=== PATIENT | female | born 1975 | race Caucasian/White ===

== ENCOUNTER 2018-09-07 23:28 | Emergency (ER) | payer BC ==
[~2018-09-07] VITALS: Ht 167.6 cm; Wt 83.9 kg
[2018-09-07 23:31] VITALS: BP_SYST 143
[2018-09-07] MEDS ORDERED: ASPIRIN 81 MG TAB.CHEW PO ONE (23:45)
[2018-09-08 00:23] LABS: BILIRUBIN,URINE NEGATIVE (NEGATIVE); BLOOD, URINE NEGATIVE (NEGATIVE); CLARITY/URINE CLEAR (CLEAR); COLOR,URINE YELLOW (YELLOW); GLUCOSE,URINE NEGATIVE (NEGATIVE); KETONES,URINE NEGATIVE (NEGATIVE); LEUKOCYTE ESTERASE ,URINE NEGATIVE (NEGATIVE); NITRITE, URINE NEGATIVE (NEGATIVE); PROTEIN URINE NEGATIVE (NEGATIVE); UROBILINOGEN,URINE 0.2 (0.2-1.0)
[2018-09-08 00:30] LABS: BASOPHILS % (AUTO) 0.5 % (0.0-2.0); CALCIUM 8.6 mg/dL (8.4-11.0); CREATININE 0.91 mg/dL (0.55-1.30); EOSINOPHILS # (AUTO) 0.1 K/uL (0.0-0.4); HEMATOCRIT 41.2 % (36-48); HEMOGLOBIN 13.5 g/dL (12.0-16.0); LYMPHOCYTES # (AUTO) 1.7 K/uL (1.0-5.5); MEAN CORPUSCULAR HEMOGLOBIN 30 pg (27-31); MEAN CORPUSCULAR HGB CONC 33 % (32-36); MEAN CORPUSCULAR VOLUME 92 fL (79.0-98.0); MONOCYTES # (AUTO) 0.5 K/uL (0.0-1.0); MONOCYTES % (AUTO) 5.5 % (1.7-9.3); NEUTROPHILS # (AUTO) 7.1 K/uL (1.8-7.7); PLATELET COUNT (AUTO) 245 K/uL (130-430); POTASSIUM 3.3 mmol/L (3.5-5.1); RED BLOOD CELL COUNT(AUTO) 4.46 MIL/uL (4.2-6.2); RED CELL DISTRIBUTION WIDTH 12.1 % (9.0-15.0); WHITE BLOOD COUNT (AUTO) 9.4 K/uL (4.8-10.8)
[2018-09-08 00:37] LABS: ALBUMIN 4.2 g/dL (3.4-4.8); TOTAL BILIRUBIN 0.2 mg/dL (0.0-1.0)
[2018-09-08 00:55] LABS: PROTHROMBIN TIME 9.9 SECS (9.5-12.5)
[2018-09-08] MEDS ORDERED: NITROGLYCERIN 0.4 MG TAB.SUBL SL ONE (01:00)
[2018-09-08 01:05] LABS: CKMB RELATIVE INDEX 0.4 (0.0-2.9); CREATINE KINASE MB 1.1 ng/mL (0-3.6)
[2018-09-08] MEDS ORDERED: MORPHINE 4 MG/ML INJ. SYRINGE IVP ONE (01:30)
[2018-09-08] MEDS ORDERED: IOHEXOL 100 ML IV ONE (01:52)
[2018-09-08] MEDS ORDERED: MORPHINE 2 MG/ML INJ. SYRINGE IVP ONE (05:30)
[2018-09-08 05:59] VITALS: BP_SYST 132
== END 2018-09-08 05:59 | disposition home or self-care (01) ==
LOC: SED 23:28
DX: R07.89 Other chest pain (principal); R42 Dizziness and giddiness; H53.8 Other visual disturbances; Z90.49 Acquired absence of other specified parts of digestive tract; Z98.51 Tubal ligation status; Z98.890 Other specified postprocedural states
CPT/HCPCS: 36415; 71045; 71260; 80053; 81003; 81025; 82550; 82553; 83880; 84484; 85025; 85379; 85610; 85730; 93005 ×2; 96374; 96376; 99285; J2270 ×2; Q9967

== ENCOUNTER 2020-11-09 21:49 | Inpatient (IN) | payer MEDICAID, SELFPAY ==
[~2020-11-09] VITALS: Ht 167.6 cm; Wt 90.7 kg
[2020-11-09 21:57] VITALS: BP_SYST 151
[2020-11-09 22:10] VITALS: BP_SYST 110
[2020-11-09] MEDS ORDERED: NACL 0.9% 1,000 ML IV ONE (23:30)
[2020-11-09] MEDS ORDERED: cefTRIAXone 1 GM in D5W 50 ML IV ONE (23:30)
[2020-11-10 00:10] LABS: BASOPHILS % (AUTO) 0.3 % (0.0-2.0); HEMATOCRIT 42.6 % (36-48); HEMOGLOBIN 14.5 g/dL (12.0-16.0); LYMPHOCYTES # (AUTO) 0.6 K/uL (1.0-5.5); LYMPHOCYTES % (AUTO) 5.7 % (20.5-51.5); MEAN CORPUSCULAR HEMOGLOBIN 31 pg (27-31); MEAN CORPUSCULAR HGB CONC 34 % (32-36); MEAN CORPUSCULAR VOLUME 90 fL (79.0-98.0); MONOCYTES # (AUTO) 0.8 K/uL (0.0-1.0); MONOCYTES % (AUTO) 7.4 % (1.7-9.3); NEUTROPHILS # (AUTO) 9.5 K/uL (1.8-7.7); NEUTROPHILS % (AUTO) 86.6 % (40.0-70.0); PLATELET COUNT (AUTO) 181 K/uL (130-430); RED BLOOD CELL COUNT(AUTO) 4.73 MIL/uL (4.2-6.2); RED CELL DISTRIBUTION WIDTH 12.1 % (9.0-15.0)
[2020-11-10 00:11] LABS: CALCIUM 8.4 mg/dL (8.4-11.0); CREATININE 1.04 mg/dL (0.55-1.30)
[2020-11-10 00:11] LABS: BILIRUBIN,URINE NEGATIVE (NEGATIVE); CLARITY/URINE CLOUDY (CLEAR); COLOR,URINE YELLOW (YELLOW); GLUCOSE,URINE NEGATIVE (NEGATIVE); KETONES,URINE NEGATIVE (NEGATIVE); LEUKOCYTE ESTERASE ,URINE NEGATIVE (NEGATIVE); NITRITE, URINE NEGATIVE (NEGATIVE); PROTEIN URINE 2+ (NEGATIVE)
[2020-11-10 00:15] LABS: BLOOD, URINE TRACE (NEGATIVE)
[2020-11-10 00:17] LABS: ALBUMIN 3.3 g/dL (3.4-4.8); TOTAL BILIRUBIN 0.8 mg/dL (0.0-1.0)
[2020-11-10 00:26] LABS: POTASSIUM 2.8 mmol/L (3.5-5.1)
[2020-11-10 00:39] LABS: BACTERIA,URINE FEW /HPF (None Seen); WBC,URINE 0-3 /HPF (0-3)
[2020-11-10] MEDS ORDERED: cefTRIAXone 1 GM VIAL ONE (01:07)
[2020-11-10] MEDS ORDERED: KCL 20 mEq in 100 mL (PREMIX) 100 ML IV ONE (01:15)
[2020-11-10] MEDS ORDERED: ACETAMINOPHEN 500 MG TABLET PO ONE (01:30)
[2020-11-10] MEDS ORDERED: ACETAMINOPHEN 500 MG TABLET ONE (01:42)
[2020-11-10] MEDS ORDERED: NACL 0.9% 1,000 ML IV ONE (04:00)
[2020-11-10] MEDS ORDERED: VANCOMYCIN HCL 1000 MG/VIAL IV ONE (04:00)
[2020-11-10] MEDS ORDERED: VANCOMYCIN HCL 1,000 MG in NS 250 ML IV ONE (04:00)
[2020-11-10] MEDS ORDERED: NALOXONE HCL 0.4 MG/ML AMP (NARCAN) IVP PRN ×2 (07:00)
[2020-11-10] MEDS ORDERED: ONDANSETRON HCL 4 MG/2 ML VIAL IVP PRN (07:00)
[2020-11-10] MEDS ORDERED: HYDROcodone/ACETAMIN 5-325 MG TAB (NORCO/ VICODIN) PO PRN (07:00)
[2020-11-10] MEDS ORDERED: LORazepam 2 MG/ML VIAL IVP PRN (07:00)
[2020-11-10] MEDS: IPRATROPIUM BROM 0.5 MG/2.5 ML VIAL.NEB (ATROVENT) INH SCH ×2 (07:00→11:00)
[2020-11-10] MEDS ORDERED: HYDROcodone/ACETAMIN 10-325 MG TAB PO PRN (07:00)
[2020-11-10] MEDS ORDERED: ALBUTEROL MDI INHALATION 8 GM INH INH PRN (07:30)
[2020-11-10] MEDS ORDERED: AZITHROMYCIN 500 MG in NS 250 ML IV ONE (07:30)
[2020-11-10] MEDS ORDERED: ENOXAPARIN SODIUM 40 MG/0.4 ML SYRINGE SUBCUT ONE (09:00)
[2020-11-10 10:10] LABS: BASOPHILS % (AUTO) 0.3 % (0.0-2.0); HEMATOCRIT 36.6 % (36-48); HEMOGLOBIN 12.5 g/dL (12.0-16.0); LYMPHOCYTES # (AUTO) 0.9 K/uL (1.0-5.5); LYMPHOCYTES % (AUTO) 10.1 % (20.5-51.5); MEAN CORPUSCULAR HEMOGLOBIN 31 pg (27-31); MEAN CORPUSCULAR HGB CONC 34 % (32-36); MEAN CORPUSCULAR VOLUME 90 fL (79.0-98.0); MONOCYTES # (AUTO) 0.7 K/uL (0.0-1.0); MONOCYTES % (AUTO) 7.5 % (1.7-9.3); NEUTROPHILS # (AUTO) 7.6 K/uL (1.8-7.7); NEUTROPHILS % (AUTO) 82.1 % (40.0-70.0); PLATELET COUNT (AUTO) 150 K/uL (130-430); RED BLOOD CELL COUNT(AUTO) 4.09 MIL/uL (4.2-6.2); RED CELL DISTRIBUTION WIDTH 12.5 % (9.0-15.0); WHITE BLOOD COUNT (AUTO) 9.3 K/uL (4.8-10.8)
[2020-11-10 10:39] LABS: CALCIUM 7.2 mg/dL (8.4-11.0); CREATININE 0.71 mg/dL (0.55-1.30); POTASSIUM 3.2 mmol/L (3.5-5.1)
[2020-11-10] MEDS ORDERED: ALBUTEROL MDI INHALATION 8 GM INH INH SCH (12:00)
[2020-11-10 12:25] VITALS: BP_SYST 142
[2020-11-10 12:35] LABS: ERYTHROCYTE SEDIMENTATION RATE 78 MM/HR (0-20)
[2020-11-10 13:19] LABS: C-REACTIVE PROTEIN QUANT 5.5 mg/dL (0-0.5)
[2020-11-10] MEDS: 0.45% NACL 1,000 ML IV SCH ×2 (13:28)
[2020-11-10] MEDS ORDERED: NORMAL SALINE 5 ML DISP.SYRIN IVF SCH (14:00)
[2020-11-10] MEDS: IVERMECTIN 3 MG TABLET PO SCH (14:33)
[2020-11-10] MEDS: DOXYCYCLINE HYCLATE 100 MG in D5W 100 ML IV SCH ×2 (14:35→20:57)
[2020-11-10] MEDS: NORMAL SALINE 5 ML DISP.SYRIN IVF SCH ×2 (14:40→22:10)
[2020-11-10] MEDS: ALBUTEROL MDI INHALATION 8 GM INH INH SCH ×3 (15:13→23:26)
[2020-11-10] MEDS: cefTRIAXone 1 GM IVPB PREMIX 50 ML IV SCH (20:39)
[2020-11-10 23:15] VITALS: BP_SYST 139
[2020-11-11 01:57] VITALS: BP_SYST 139
[2020-11-11] MEDS: ACETAMINOPHEN 325 MG TABLET PO PRN ×2 (03:25→23:45)
[2020-11-11] MEDS: NORMAL SALINE 5 ML DISP.SYRIN IVF SCH ×3 (05:01→22:00)
[2020-11-11] MEDS ORDERED: AZITHROMYCIN 500 MG in NS 250 ML IV SCH (07:00)
[2020-11-11 08:12] LABS: BASOPHILS % (AUTO) 0.5 % (0.0-2.0); EOSINOPHILS % (AUTO) 0.7 % (0.0-4.0); HEMATOCRIT 35.9 % (36-48); HEMOGLOBIN 12.1 g/dL (12.0-16.0); LYMPHOCYTES # (AUTO) 1.1 K/uL (1.0-5.5); LYMPHOCYTES % (AUTO) 19.8 % (20.5-51.5); MEAN CORPUSCULAR HEMOGLOBIN 32 pg (27-31); MEAN CORPUSCULAR HGB CONC 34 % (32-36); MEAN CORPUSCULAR VOLUME 93 fL (79.0-98.0); MONOCYTES # (AUTO) 0.5 K/uL (0.0-1.0); MONOCYTES % (AUTO) 9.9 % (1.7-9.3); NEUTROPHILS # (AUTO) 3.8 K/uL (1.8-7.7); NEUTROPHILS % (AUTO) 69.1 % (40.0-70.0); PLATELET COUNT (AUTO) 157 K/uL (130-430); RED BLOOD CELL COUNT(AUTO) 3.85 MIL/uL (4.2-6.2); RED CELL DISTRIBUTION WIDTH 12.2 % (9.0-15.0); WHITE BLOOD COUNT (AUTO) 5.4 K/uL (4.8-10.8)
[2020-11-11 08:20] VITALS: BP_SYST 138
[2020-11-11] MEDS: DOXYCYCLINE HYCLATE 100 MG in D5W 100 ML IV SCH ×2 (08:20→22:30)
[2020-11-11] MEDS: ENOXAPARIN SODIUM 40 MG/0.4 ML SYRINGE SUBCUT SCH (08:20)
[2020-11-11] MEDS: IVERMECTIN 3 MG TABLET PO SCH (08:20)
[2020-11-11 08:53] LABS: CALCIUM 7.6 mg/dL (8.4-11.0); CREATININE 0.5 mg/dL (0.55-1.30); POTASSIUM 3.2 mmol/L (3.5-5.1)
[2020-11-11 09:03] LABS: INR 0.9 (0.8-1.2); PROTHROMBIN TIME 9.7 SECS (9.5-12.5)
[2020-11-11 09:12] LABS: ALBUMIN 2.5 g/dL (3.4-4.8); PHOSPHORUS 2.6 mg/dL (2.7-4.5); TOTAL BILIRUBIN 0.5 mg/dL (0.0-1.0)
[2020-11-11 10:46] LABS: C-REACTIVE PROTEIN QUANT 7.6 mg/dL (0-0.5)
[2020-11-11] MEDS: 0.45% NACL 1,000 ML IV SCH ×2 (11:34→17:35)
[2020-11-11 11:54] VITALS: BP_SYST 139
[2020-11-11] MEDS: ALBUTEROL MDI INHALATION 8 GM INH INH SCH ×4 (12:15→23:25)
[2020-11-11 16:36] VITALS: BP_SYST 139
[2020-11-11] MEDS ORDERED: K PHOS 15 MM in NS 250 ML IV ONE (18:15)
[2020-11-11] MEDS: cefTRIAXone 1 GM IVPB PREMIX 50 ML IV SCH (22:00)
[2020-11-12] MEDS: 0.45% NACL 1,000 ML IV SCH ×2 (00:10→16:16)
[2020-11-12 01:34] VITALS: BP_SYST 132
[2020-11-12] MEDS: ALBUTEROL MDI INHALATION 8 GM INH INH SCH ×5 (03:35→19:00)
[2020-11-12] MEDS: NORMAL SALINE 5 ML DISP.SYRIN IVF SCH ×3 (06:40→22:00)
[2020-11-12 07:54] LABS: BASOPHILS % (AUTO) 0.7 % (0.0-2.0); EOSINOPHILS # (AUTO) 0.1 K/uL (0.0-0.4); EOSINOPHILS % (AUTO) 2.9 % (0.0-4.0); HEMATOCRIT 36.6 % (36-48); HEMOGLOBIN 12.5 g/dL (12.0-16.0); LYMPHOCYTES # (AUTO) 1.1 K/uL (1.0-5.5); LYMPHOCYTES % (AUTO) 23.2 % (20.5-51.5); MEAN CORPUSCULAR HEMOGLOBIN 32 pg (27-31); MEAN CORPUSCULAR HGB CONC 34 % (32-36); MEAN CORPUSCULAR VOLUME 94 fL (79.0-98.0); MONOCYTES # (AUTO) 0.4 K/uL (0.0-1.0); MONOCYTES % (AUTO) 8.1 % (1.7-9.3); NEUTROPHILS # (AUTO) 3.2 K/uL (1.8-7.7); NEUTROPHILS % (AUTO) 65.1 % (40.0-70.0); PLATELET COUNT (AUTO) 188 K/uL (130-430); RED BLOOD CELL COUNT(AUTO) 3.89 MIL/uL (4.2-6.2); RED CELL DISTRIBUTION WIDTH 11.9 % (9.0-15.0); WHITE BLOOD COUNT (AUTO) 4.9 K/uL (4.8-10.8)
[2020-11-12 08:00] VITALS: BP_SYST 132
[2020-11-12 08:29] LABS: CREATININE 0.5 mg/dL (0.55-1.30); POTASSIUM 3.5 mmol/L (3.5-5.1)
[2020-11-12 08:54] LABS: C-REACTIVE PROTEIN QUANT 2.3 mg/dL (0-0.5)
[2020-11-12] MEDS: ENOXAPARIN SODIUM 40 MG/0.4 ML SYRINGE SUBCUT SCH (09:32)
[2020-11-12] MEDS: DOXYCYCLINE HYCLATE 100 MG in D5W 100 ML IV SCH ×2 (09:33→21:30)
[2020-11-12] MEDS: IVERMECTIN 3 MG TABLET PO SCH (09:33)
[2020-11-12 11:37] LABS: ERYTHROCYTE SEDIMENTATION RATE 81 MM/HR (0-20)
[2020-11-12 13:03] VITALS: BP_SYST 124
[2020-11-12] MEDS: ACETAMINOPHEN 325 MG TABLET PO PRN (16:25)
[2020-11-12 17:28] VITALS: BP_SYST 150
[2020-11-12] MEDS ORDERED: BISACODYL 5 MG TABLET.DR (DULCOLAX) ONE (18:28)
[2020-11-12 20:00] VITALS: BP_SYST 135
[2020-11-12] MEDS: cefTRIAXone 1 GM IVPB PREMIX 50 ML IV SCH (20:30)
[2020-11-13] VITALS: BP_SYST 138
[2020-11-13] MEDS: ALBUTEROL MDI INHALATION 8 GM INH INH SCH ×3 (00:03→08:01)
[2020-11-13] MEDS: 0.45% NACL 1,000 ML IV SCH ×3 (00:20→20:45)
[2020-11-13] MEDS: NORMAL SALINE 5 ML DISP.SYRIN IVF SCH ×3 (06:00→21:06)
[2020-11-13] MEDS: DOXYCYCLINE HYCLATE 100 MG in D5W 100 ML IV SCH ×2 (09:13→21:40)
[2020-11-13] MEDS: ENOXAPARIN SODIUM 40 MG/0.4 ML SYRINGE SUBCUT SCH (09:13)
[2020-11-13 09:41] VITALS: BP_SYST 131
[2020-11-13 09:41] LABS: BASOPHILS % (AUTO) 0.7 % (0.0-2.0); EOSINOPHILS # (AUTO) 0.2 K/uL (0.0-0.4); EOSINOPHILS % (AUTO) 3.8 % (0.0-4.0); HEMATOCRIT 37.7 % (36-48); LYMPHOCYTES % (AUTO) 20.9 % (20.5-51.5); MEAN CORPUSCULAR HEMOGLOBIN 32 pg (27-31); MEAN CORPUSCULAR HGB CONC 34 % (32-36); MEAN CORPUSCULAR VOLUME 93 fL (79.0-98.0); MONOCYTES # (AUTO) 0.3 K/uL (0.0-1.0); NEUTROPHILS # (AUTO) 3.4 K/uL (1.8-7.7); NEUTROPHILS % (AUTO) 68.6 % (40.0-70.0); PLATELET COUNT (AUTO) 263 K/uL (130-430); RED BLOOD CELL COUNT(AUTO) 4.05 MIL/uL (4.2-6.2); RED CELL DISTRIBUTION WIDTH 12.2 % (9.0-15.0)
[2020-11-13 09:47] LABS: ALBUMIN 2.9 g/dL (3.4-4.8); CALCIUM 8.2 mg/dL (8.4-11.0); CREATININE 0.53 mg/dL (0.55-1.30); POTASSIUM 3.2 mmol/L (3.5-5.1); TOTAL BILIRUBIN 0.6 mg/dL (0.0-1.0)
[2020-11-13 10:08] LABS: C-REACTIVE PROTEIN QUANT 0.9 mg/dL (0-0.5)
[2020-11-13] MEDS ORDERED: POTASSIUM CHLORIDE 20 MEQ TAB.PRT.SR PO ONE (12:30)
[2020-11-13 12:32] LABS: ERYTHROCYTE SEDIMENTATION RATE 74 MM/HR (0-20)
[2020-11-13 13:21] VITALS: BP_SYST 132
[2020-11-13 16:04] VITALS: BP_SYST 126
[2020-11-13 20:00] VITALS: BP_SYST 122
[2020-11-13] MEDS: cefTRIAXone 1 GM IVPB PREMIX 50 ML IV SCH (21:00)
[2020-11-14] VITALS: BP_SYST 126
[2020-11-14] MEDS: 0.45% NACL 1,000 ML IV SCH ×2 (05:35→08:11)
[2020-11-14] MEDS: NORMAL SALINE 5 ML DISP.SYRIN IVF SCH ×3 (05:35→21:35)
[2020-11-14 06:17] LABS: BASOPHILS # (AUTO) 0.1 K/uL (0.0-0.2); BASOPHILS % (AUTO) 0.9 % (0.0-2.0); EOSINOPHILS # (AUTO) 0.2 K/uL (0.0-0.4); EOSINOPHILS % (AUTO) 3.2 % (0.0-4.0); HEMATOCRIT 37.1 % (36-48); HEMOGLOBIN 12.9 g/dL (12.0-16.0); LYMPHOCYTES # (AUTO) 1.5 K/uL (1.0-5.5); LYMPHOCYTES % (AUTO) 21.3 % (20.5-51.5); MEAN CORPUSCULAR HEMOGLOBIN 32 pg (27-31); MEAN CORPUSCULAR HGB CONC 35 % (32-36); MEAN CORPUSCULAR VOLUME 92 fL (79.0-98.0); MONOCYTES # (AUTO) 0.4 K/uL (0.0-1.0); MONOCYTES % (AUTO) 5.8 % (1.7-9.3); NEUTROPHILS # (AUTO) 4.7 K/uL (1.8-7.7); NEUTROPHILS % (AUTO) 68.8 % (40.0-70.0); PLATELET COUNT (AUTO) 265 K/uL (130-430); RED BLOOD CELL COUNT(AUTO) 4.04 MIL/uL (4.2-6.2); RED CELL DISTRIBUTION WIDTH 12.2 % (9.0-15.0); WHITE BLOOD COUNT (AUTO) 6.8 K/uL (4.8-10.8)
[2020-11-14 06:26] LABS: CALCIUM 8.1 mg/dL (8.4-11.0); CREATININE 0.68 mg/dL (0.55-1.30); POTASSIUM 3.7 mmol/L (3.5-5.1)
[2020-11-14 07:12] VITALS: BP_SYST 126
[2020-11-14] MEDS: ALBUTEROL MDI INHALATION 8 GM INH INH SCH ×3 (07:35→16:12)
[2020-11-14 07:55] VITALS: BP_SYST 133
[2020-11-14] MEDS: DOXYCYCLINE HYCLATE 100 MG in D5W 100 ML IV SCH ×2 (08:08→21:34)
[2020-11-14] MEDS: ENOXAPARIN SODIUM 40 MG/0.4 ML SYRINGE SUBCUT SCH (08:11)
[2020-11-14 10:17] LABS: ERYTHROCYTE SEDIMENTATION RATE 63 MM/HR (0-20)
[2020-11-14 10:57] LABS: C-REACTIVE PROTEIN QUANT 0.7 mg/dL (0-0.5)
[2020-11-14 12:11] VITALS: BP_SYST 135
[2020-11-14 16:00] VITALS: BP_SYST 137
[2020-11-14 20:00] VITALS: BP_SYST 135
[2020-11-14] MEDS: cefTRIAXone 1 GM IVPB PREMIX 50 ML IV SCH (20:30)
[2020-11-15] VITALS: BP_SYST 128
[2020-11-15] MEDS: 0.45% NACL 1,000 ML IV SCH (01:13)
[2020-11-15] MEDS: ALBUTEROL MDI INHALATION 8 GM INH INH SCH ×4 (04:23→12:25)
[2020-11-15] MEDS: NORMAL SALINE 5 ML DISP.SYRIN IVF SCH (06:30)
[2020-11-15] MEDS: DOXYCYCLINE HYCLATE 100 MG in D5W 100 ML IV SCH (08:11)
[2020-11-15] MEDS: ENOXAPARIN SODIUM 40 MG/0.4 ML SYRINGE SUBCUT SCH (08:14)
[2020-11-15 08:17] VITALS: BP_SYST 112
[2020-11-15 11:25] VITALS: BP_SYST 132
[2020-11-15] MEDS ORDERED: APIX2.5T PO (14:03)
[2020-11-15] MEDS ORDERED: LEVO500T89 PO (14:03)
[2020-11-15 14:32] VITALS: BP_SYST 132
== END 2020-11-15 15:55 | disposition home or self-care (01) | DRG 720 ==
LOC: SED 21:49 → STU 11-10 06:11 → SMU 11-15 15:42
PROVIDERS: ADMIT Preventive Medicine Preventive Medicine/Occupational Environmental Medicine; ATTEND Preventive Medicine Preventive Medicine/Occupational Environmental Medicine
DX: A41.9 Sepsis, unspecified organism (principal); U07.1 COVID-19; J12.89 Other viral pneumonia; E83.39 Other disorders of phosphorus metabolism; E87.1 Hypo-osmolality and hyponatremia; E87.6 Hypokalemia; E88.09 Other disorders of plasma-protein metabolism, not elsewhere classified; E83.51 Hypocalcemia; J96.00 Acute respiratory failure, unspecified whether with hypoxia or hypercapnia; R53.81 Other malaise; Z79.01 Long term (current) use of anticoagulants; Z90.710 Acquired absence of both cervix and uterus; Z90.49 Acquired absence of other specified parts of digestive tract; Z98.891 History of uterine scar from previous surgery
CPT/HCPCS: 36415; 36600; 71045; 80048; 80053; 81000-TC; 82550-TC; 82728; 82803-TC; 83605; 83615-TC; 83735-TC; 83880; 84100-TC; 85025; 85379; 85384-TC; 85610-TC; 85651-TC; 85730-TC; 86140; 87040-TC; 93005; 94640; 94664; 94760; 96361; 96365; 99285; G0378; J0456; J0696; J1650; J3370; J3480; J3490; J7030; J7050; J7060

== ENCOUNTER 2022-08-18 08:36 | Emergency (ER) | payer MEDICAID ==
[~2022-08-18] VITALS: Ht 167.6 cm; Wt 90.7 kg
[~2022-08-18 08:36] MED LIST: APIX2.5T PO; LEVO-62 PO
[2022-08-18 08:49] VITALS: BP_SYST 142
[2022-08-18 09:08] LABS: BASOPHILS % (AUTO) 0.5 % (0.0-2.0); EOSINOPHILS # (AUTO) 0.2 K/uL (0.0-0.4); EOSINOPHILS % (AUTO) 2.5 % (0.0-4.0); HEMATOCRIT 37.4 % (36-48); LYMPHOCYTES # (AUTO) 3.5 K/uL (1.0-5.5); MEAN CORPUSCULAR VOLUME 82 fL (79.0-98.0); MONOCYTES # (AUTO) 0.8 K/uL (0.0-1.0); MONOCYTES % (AUTO) 8.2 % (1.7-9.3); NEUTROPHILS # (AUTO) 5.2 K/uL (1.8-7.7); NEUTROPHILS % (AUTO) 52.8 % (40.0-70.0); PLATELET COUNT (AUTO) 186 K/uL (130-430); RED BLOOD CELL COUNT(AUTO) 4.59 MIL/uL (4.2-6.2); RED CELL DISTRIBUTION WIDTH 12.7 % (9.0-15.0); WHITE BLOOD COUNT (AUTO) 9.8 K/uL (4.8-10.8)
[2022-08-18 09:08] LABS: BILIRUBIN,URINE NEGATIVE (NEGATIVE); BLOOD, URINE NEGATIVE (NEGATIVE); CLARITY/URINE CLEAR (CLEAR); COLOR,URINE YELLOW (YELLOW); GLUCOSE,URINE NEGATIVE (NEGATIVE); KETONES,URINE NEGATIVE (NEGATIVE); LEUKOCYTE ESTERASE ,URINE NEGATIVE (NEGATIVE); NITRITE, URINE NEGATIVE (NEGATIVE); PH,URINE 5.5 (5.0-8.0); PROTEIN URINE NEGATIVE (NEGATIVE); UROBILINOGEN,URINE 0.2 (0.2-1.0)
[2022-08-18 09:10] LABS: ANION GAP 9 (5-15); CALCIUM 9.3 mg/dL (8.4-11.0); CHLORIDE 106 mmol/L (98-107); CREATININE 0.65 mg/dL (0.55-1.30); GLUCOSE 124 mg/dL (70-99); POTASSIUM 3.7 mmol/L (3.5-5.1); UREA NITROGEN, BLOOD 15 mg/dL (8-21)
[2022-08-18 09:15] LABS: GFR AFRICAN AMERICAN 125 mL/min (>90)
[2022-08-18 09:16] LABS: ALANINE AMINOTRANSFERASE 43 U/L (12-78); ALBUMIN 3.3 g/dL (3.4-4.8); AMYLASE 46 U/L (0-100); ASPARTATE AMINOTRANSFERASE 21 U/L (10-37); LIPASE 237 U/L (73-393); TOTAL BILIRUBIN 0.4 mg/dL (0.0-1.0)
[2022-08-18 09:24] LABS: C-REACTIVE PROTEIN QUANT < 0.2 mg/dL (0-0.5)
[2022-08-18] MEDS ORDERED: KETOROLAC TROMETHAMINE 60 MG/2 ML VIAL IM ONE (09:30)
--- NOTE | 2022-08-18 09:30 | NUR ---
Patient c/o lower abd apin x 3 days, radiating to the back. Patient states she had a hysterectomy a few years back, exact year unknown. Patient denies pain with urination. 8/10 on pain scale. Patient is AOx4, vitals are stable.
--- NOTE | 2022-08-18 09:32 | NUR ---
Patient taken fot CT imaging
--- NOTE | 2022-08-18 09:32 | NUR ---
Urine collected, Preg test (-)
--- NOTE | 2022-08-18 09:40 | NUR ---
Patient returned from CT scan
--- NOTE | 2022-08-18 09:45 | NUR ---
MD at bedside discussing plan of care with patient
[2022-08-18] MEDS ORDERED: IBUP-1969 PO (10:14)
[2022-08-18] MEDS ORDERED: HYDR-3917 PO (10:14)
--- NOTE | 2022-08-18 10:15 | NUR ---
Patient medicated per order, education provided and all questions answered.
[2022-08-18 10:26] VITALS: BP_SYST 120
--- NOTE | 2022-08-18 10:26 | NUR ---
Patient given written and verbal discharge instructions and verbalizes understanding. ER MD discussed with patient the results and treatment provided. Patient in stable condition. ID arm band removed. IV catheter removed intact and dressing applied, no active bleeding. Rx of given. Patient educated on pain management and to follow up with PMD. Pain Scale 0/10 Opportunity for questions provided and answered. Medication side effect fact sheet provided.
== END 2022-08-18 10:26 | disposition home or self-care (01) ==
LOC: SED 08:36
DX: R10.32 Left lower quadrant pain (principal); Z79.899 Other long term (current) drug therapy
CPT/HCPCS: 99284; 74176; 80053; 82150; 83690; 85025; 86140; 36415; 76376; 81025; 96372; 83605; 81003; J1885

== ENCOUNTER 2023-05-25 21:58 | Emergency (ER) | payer OTHER, MEDICAID ==
[~2023-05-25] VITALS: Ht 167.6 cm; Wt 77.1 kg
[~2023-05-25 21:58] MED LIST changes: +HYDR-3917 PO; +IBUP-1969 PO
[2023-05-25 22:18] VITALS: BP_SYST 141; PULSE 88; RESP 20; TEMP 97.7; O2SAT 98
[2023-05-25] MEDS ORDERED: ACETAMINOPHEN 500 MG TABLET PO ONE (23:30)
[2023-05-25] MEDS ORDERED: ACET-2634 PO (23:30)
[2023-05-25 23:57] VITALS: BP_SYST 133; PULSE 84; RESP 17; TEMP 98.5; O2SAT 99
== END 2023-05-25 23:57 | disposition home or self-care (01) ==
LOC: SED 21:58
DX: S39.012A Strain of muscle, fascia and tendon of lower back, initial encounter (principal); S16.1XXA Strain of muscle, fascia and tendon at neck level, initial encounter; Z79.899 Other long term (current) drug therapy; V89.2XXA Person injured in unspecified motor-vehicle accident, traffic, initial encounter; Y93.89 Activity, other specified; Y92.89 Other specified places as the place of occurrence of the external cause; Y99.8 Other external cause status
CPT/HCPCS: 99282